=== PATIENT | female | born 1935 | race American Indian/Alaskan Native ===

== ENCOUNTER 2017-08-03 12:22 | Outpatient (CLI) | payer MEDICARE ==
[2017-08-03 13:20] LABS: Blood Urea Nitrogen 20 mg/dL (7-17)
--- NOTE | 2017-08-03 16:13 | Cat Scan Report ---
FINAL REPORT EXAM: CT ABDOMEN PELVIS W CON HISTORY: ELEVATED PANCREAS AND WITH BLOOD COUNT R74.8/D72.829 TECHNIQUE: Spiral CT scanning of the abdomen and pelvis after the uneventful administration of IV contrast. Multiplanar reformations. PRIORS: None. FINDINGS: Abdomen: Visualized lung bases grossly unremarkable. Very small hiatal hernia. No radiopaque gallstones. Liver shows diffusely decreased attenuation without focal abnormality. Spleen without significant abnormality. Pancreas without significant abnormality. Kidneys without significant abnormality. Probable small bilateral renal cysts measuring up to 1.1 cm in the right kidney. Adrenal glands without significant abnormality. Pelvis: Diverticular change in the rectosigmoid colon, which is incompletely or nondistended, with variable bowel wall and fold thickening and slight pericolonic fat stranding. Remainder of visualized bowel grossly unremarkable, without evidence of mechanical bowel obstruction. Appendix within normal limits. No significant free peritoneal fluid, discrete abscess or apparent adenopathy. Aortoiliac calcification without aneurysmal dilatation. Degenerative changes in thoracolumbar spine. IMPRESSION: 1. Diverticular change in the rectosigmoid colon, and findings which may be due to incomplete or nondistention versus nonspecific postinflammatory change of uncertain chronicity. Correlate clinically. 2. Findings compatible with fatty infiltration in the liver.
== END 2017-08-03 12:23 | disposition home or self-care (01) ==
LOC: CT 12:22
PROVIDERS: ATTEND Internal Medicine
DX: D72.829 Elevated white blood cell count, unspecified (principal); R74.8 Abnormal levels of other serum enzymes; K44.9 Diaphragmatic hernia without obstruction or gangrene; M47.895 Other spondylosis, thoracolumbar region; I70.0 Atherosclerosis of aorta; I10 Essential (primary) hypertension; E03.9 Hypothyroidism, unspecified; M19.90 Unspecified osteoarthritis, unspecified site
CPT/HCPCS: 36415; 74177; 82565; 84520; Q9967

== ENCOUNTER 2018-06-22 11:33 | Day surgery (SDC) | payer MEDICARE ==
[~2018-06-22 11:33] MED LIST: IOPIDINE OD ONE; MYDRIACYL OD ONE; MYDRIACYL OU ONE; NEOFRIN OD ONE; NEOFRIN OU SCH
[2018-06-22 13:56] VITALS: BP 137/56
[2018-06-22] MEDS ORDERED: IOPIDINE ONE (14:12)
== END 2018-06-22 11:34 | disposition home or self-care (01) ==
LOC: OR 11:33
PROVIDERS: ATTEND Specialist
DX: H26.491 Other secondary cataract, right eye (principal); I10 Essential (primary) hypertension; M06.9 Rheumatoid arthritis, unspecified; E03.9 Hypothyroidism, unspecified; Z98.890 Other specified postprocedural states; Z79.899 Other long term (current) drug therapy; Z79.82 Long term (current) use of aspirin; Z87.891 Personal history of nicotine dependence; Z98.41 Cataract extraction status, right eye; Z98.42 Cataract extraction status, left eye
CPT/HCPCS: 82962